=== PATIENT | female | born 1970 | race Caucasian/White ===

== ENCOUNTER 2018-04-03 16:24 | Emergency (ER) | payer SELFPAY ==
[2018-04-03 16:31] VITALS: BP 149/76; BMI 25.7
--- NOTE | 2018-04-03 18:02 | DR.GENAD ---
HPI - PCP Primary Care Physician: none - HPI Comment HPI Comment: HISTORY BELOW. - Complaint/Symptoms Chief Complaint Doctors Comments: RASH, LEFT UPPER ARM PAIN. REDNESS AROUND RASH GOING INTO ARM. LOW GRADE FEVER AT HOME. MUSCLES CRAPING ALSO. LOW POTASSIUM CAUSE MUSCLES TO CRAMP IN THE PAST. Chief Complaint:: left upper arm pain, rash - Nurses notes reviewed Nurses Notes Review: Yes - Source History Provided: Patient - Mode of Arrival Mode of Arrival: Ambulatory - Timing Onset of Chief Complaint: 03/29/18 Came on: Suddenly - Duration Duration: Constant Duration: Days PMH - PMH Past Medical History: Yes Past Medical History: Anxiety, Depression, Hypertension Past Surgical History: Yes Past Surgical History Comment: neck surg - Family History History of Family Medical Conditions: No - Social History Does patient currently use any type of tobacco product: Yes Have you used tobacco products in the last 12 months: Yes Type of Tobacco Use: Cigarettes How many years tobacco product used: 5 Does any household member use tobacco: No Alcohol Use: Occasionally Do you use any recreational Drugs:: No Lives With: Family Lives Where: Home - infectious screening In the last 2 months have you had wt loss of >10#?: NO Have you had fever, night sweats or hemotysis?: No Have you traveled outside the country in the last 6 months?: No Isolation: Standard ROS - Review of Systems Constitutional: Fever (AT HOME.) Eyes: No Symptoms Reported ENTM: No Symptoms Reported Respiratoy: No Symptoms Reported Cardiovascular: No Symptoms Reported Gastrointestinal/Abdominal: No Symptoms Reported Genitourinary: No Symptoms Reported Neurological: No Symptoms Reported Musculoskeletal: Muscle Pain Integumentary: Rash (LUE RASH. ITCHING.), Itching Hematologic/Lymphatic: No Symptoms Reported Endocrine: No Symptoms Reported All Other Systems: Reviewed and Negative PE - Vital Signs Vitals: Temperature 98.1 F Pulse Rate 57 Respiratory Rate 18 Blood Pressure 149/76 O2 Sat by Pulse Oximetry 98 - General Limitations: No Limitations General Appearance: Alert - Head Head Exam: Normal Inspection - Eyes Eye exam: Normal Appearance - ENT ENT Exam: Normal External Ear Exam External Ear Exam: Normal External Inspection TM/Canal Exam: Bilateral Normal Nose Exam: Normal Nose Exam Mouth Exam: Normal Inspection Throat Exam: Normal Inspection - Neck Neck Exam: Trachea Midline - Chest Chest Inspection: Symmetric Chest Wall Rise - Respiratory Respiratory Exam: Normal Lung Sounds Bilat Respiratory Exam: Bilateral Clear to Auscultation - Cardiovascular Cardiovascular Exam: Regular Rate, Normal Rhythm, Normal Heart Sounds - Abdominal Exam Abdominal Exam: Normal Bowel Sounds, Soft. negative: Tenderness - Extremities Extremities Exam: Normal Inspection - Back Back Exam: Normal Inspection - Neurologic Neurological Exam: Alert, Oriented X3 - Psychiatric Psychiatric Exam: Normal Affect, Normal Mood - Skin Skin Exam: Rash (LUE WITH REDNESS.), Erythema MDM - Differential Diagnosis Differential Diagnosis: RASH, PRURITUS, CELLULITIS Course - Treatment Treatment: SEE ORDERS. - Education/Counseling Education/Counseling: Patient, Education Educated On: Diagnosis, Needs for Follow Up ROR - Labs Reviewed Laboratory Results Reviewed?: Yes Result Diagrams: 04/03/18 18:39 04/03/18 18:39 Laboratory: WBC 7.5 X10^3/uL (3.6-10.0) 04/03/18 18:39 RBC 4.19 X10^6/uL (3.5-5.4) 04/03/18 18:39 Hgb 13.8 g/dL (12.0-16.0) 04/03/18 18:39 Hct 39.6 % (36.0-47.0) 04/03/18 18:39 MCV 94.6 fL (80.0-100.0) 04/03/18 18:39 MCH 32.9 pg (27.0-34.0) 04/03/18 18:39 MCHC 34.8 g/dL (33.0-35.0) 04/03/18 18:39 RDW 13.2 % (11.6-16.5) 04/03/18 18:39 Plt Count 256 X10^3/uL (150.0-450.0) 04/03/18 18:39 MPV 9.2 fL (7.4-11.0) 04/03/18 18:39 Neut % (Auto) 54.2 % (42.0-75.0) 04/03/18 18:39 Lymph % (Auto) 32.1 % (21.0-51.0) 04/03/18 18:39 [place] % (Auto) 6.1 % (0.0-13.0) 04/03/18 18:39 Eos % (Auto) 6.2 % (0.9-2.9) H 04/03/18 18:39 Baso % (Auto) 1.4 % (0.2-1.0) H 04/03/18 18:39 Neut # (Auto) 4.1 x10^3/uL (2.2-4.8) 04/03/18 18:39 Lymph # (Auto) 2.4 X10^3/uL (1.3-2.9) 04/03/18 18:39 [place] # (Auto) 0.5 x10^3/uL (0.3-0.8) 04/03/18 18:39 Eos # (Auto) 0.5 x10^3/uL (0.0-0.2) H 04/03/18 18:39 Baso # (Auto) 0.1 X10^3/uL (0.0-0.1) 04/03/18 18:39 Absolute Nucleated RBC 0.1 /100WBC 04/03/18 18:39 Sodium 138 mmol/L (136-145) 04/03/18 18:39 Corrected Sodium TNP 04/03/18 18:39 Potassium 4.0 mmol/L (3.5-5.1) 04/03/18 18:39 Chloride 102 mmol/L (98-107) 04/03/18 18:39 Carbon Dioxide 27.4 mmol/L (21-32) 04/03/18 18:39 BUN 12 mg/dL (7-18) 04/03/18 18:39 Creatinine 0.77 mg/dL (0.55-1.02) 04/03/18 18:39 Est GFR (MDRD) Af Amer > 60 (>60) 04/03/18 18:39 Est GFR (MDRD) Non-Af > 60 (>60) 04/03/18 18:39 Glucose 83 mg/dL (65-99) 04/03/18 18:39 Calcium 8.4 mg/dL (8.5-10.1) L 04/03/18 18:39 Corrected Calcium TNP 04/03/18 18:39 Total Bilirubin 0.30 mg/dL (0.2-1.0) 04/03/18 18:39 AST 45 Units/L (15-37) H 04/03/18 18:39 ALT 41 Units/L (12-78) 04/03/18 18:39 Alkaline Phosphatase 62 Units/L (46-116) 04/03/18 18:39 Total Protein 8.3 g/dL (6.4-8.2) H 04/03/18 18:39 Albumin 4.9 g/dL (3.4-5.0) 04/03/18 18:39 Globulin 3.4 g/dL (2.5-4.5) 04/03/18 18:39 Albumin/Globulin Ratio 1.4 Ratio (1.1-2.1) 04/03/18 18:39 - Diagnosis Discharge Problem: Rash Cellulitis Qualifiers: Site of cellulitis: extremity Site of cellulitis of extremity: upper extremity Laterality: left Qualified Code(s): L03.114 - Cellulitis of left upper limb - Discharge Plan Disposition: 01 HOME, SELF-CARE Condition: Stable Prescriptions: Hydroxyzine Pamoate [Vistaril] 25 mg PO TID PRN #20 cap PRN Reason: Sulfamethoxazole-Trimethoprim [BACTRIM DS TAB 800/160 MG *] 1 tab PO BID #20 tab - Follow ups/Referrals Follow ups/Referrals: [facility],None [Primary Care Provider] - 3 days - Instructions Instructions: Cellulitis, Adult, Rash, [id number] Additional Instructions: RETURN TO ED IF WORSE.
[2018-04-03 18:48] LABS: BASOPHILS # (AUTO) 0.1 X10^3/uL (0.0-0.1); BASOPHILS % (AUTO) 1.4 % (0.2-1.0); EOSINOPHILS # (AUTO) 0.5 x10^3/uL (0.0-0.2); EOSINOPHILS % (AUTO) 6.2 % (0.9-2.9); HEMATOCRIT 39.6 % (36.0-47.0); HEMOGLOBIN 13.8 g/dL (12.0-16.0); LYMPHOCYTES # (AUTO) 2.4 X10^3/uL (1.3-2.9); LYMPHOCYTES % (AUTO) 32.1 % (21.0-51.0); MEAN CORPUSCULAR HEMOGLOBIN 32.9 pg (27.0-34.0); MEAN CORPUSCULAR HGB CONC 34.8 g/dL (33.0-35.0); MEAN CORPUSCULAR VOLUME 94.6 fL (80.0-100.0); MEAN PLATELET VOLUME 9.2 fL (7.4-11.0); MONOCYTES # (AUTO) 0.5 x10^3/uL (0.3-0.8); MONOCYTES % (AUTO) 6.1 % (0.0-13.0); NEUTROPHILS # (AUTO) 4.1 x10^3/uL (2.2-4.8); NEUTROPHILS % (AUTO) 54.2 % (42.0-75.0); PLATELET COUNT 256 X10^3/uL (150.0-450.0); RED BLOOD COUNT 4.19 X10^6/uL (3.5-5.4); RED CELL DISTRIBUTION WIDTH 13.2 % (11.6-16.5); WHITE BLOOD COUNT 7.5 X10^3/uL (3.6-10.0)
[2018-04-03 18:56] LABS: ALANINE AMINOTRANSFERASE 41 Units/L (12-78); ALBUMIN 4.9 g/dL (3.4-5.0); ALKALINE PHOSPHATASE 62 Units/L (46-116); ASPARTATE AMINO TRANSFERASE 45 Units/L (15-37); BLOOD UREA NITROGEN 12 mg/dL (7-18); CALCIUM 8.4 mg/dL (8.5-10.1); CARBON DIOXIDE 27.4 mmol/L (21-32); CHLORIDE 102 mmol/L (98-107); CREATININE 0.77 mg/dL (0.55-1.02); SODIUM 138 mmol/L (136-145); TOTAL PROTEIN 8.3 g/dL (6.4-8.2); eGFR BLACK RACES > 60 (>60); eGFR NON BLACK RACES > 60 (>60)
[2018-04-03] MEDS ORDERED: BACTRIM DS TAB PO ONE ×2 (19:58→20:00)
[2018-04-03] MEDS ORDERED: VISTARIL PO ONE ×2 (19:58→20:00)
== END 2018-04-03 20:02 | disposition home or self-care (01) ==
LOC: ER 16:42
DX: L03.114 Cellulitis of left upper limb (principal); R21 Rash and other nonspecific skin eruption
CPT/HCPCS: 36415; 80053; 85025; 99282; Q0177